=== PATIENT | male | born 1935 | race Caucasian/White ===

== ENCOUNTER 2017-04-04 05:48 | Day surgery (SDC) | payer MEDICARE, BC, OTHER ==
[~2017-04-04] VITALS: Ht 177.8 cm; Wt 83.5 kg
[~2017-04-04 05:48] MED LIST: ALEV220T26 PO; ASPI1TAB PO; ASPI325T PO; ATEN25TA PO; ATRO1OPD; BIMA01SOL OU; COMB0.2S; GABA-282 PO; GLIP10TA6 PO; GLIP5TAB8 PO; LATA5OPD; LISI10TA4 PO; METF10004 PO; PRED20TA PO; TRAV04OPD OU
[2017-04-04] MEDS ORDERED: ACETAMINOPHEN 325 MG TAB PO PRN (06:00)
[2017-04-04] MEDS ORDERED: SLF 3 ML SYR IV SCH (06:00)
[2017-04-04] MEDS ORDERED: SLF 3 ML SYR IV PRN (06:00)
[2017-04-04] MEDS ORDERED: BETAMETHASONE SOLUSPAN 6MG/ML INJ 5ML (J0702) As Ordered ONE (06:43)
[2017-04-04] MEDS ORDERED: mitoMYcin 0.2 MG/VIAL KIT FOR OPHTHALMIC USE (J7315 PER 0.2MG) As Ordered ONE (06:43)
[2017-04-04] MEDS ORDERED: TOBRADEX OPHTH OINT 3.5 GM As Ordered ONE (06:43)
[2017-04-04] MEDS ORDERED: TOBRAMYCIN INJ 80 MG/2 ML VIAL (J3260) As Ordered ONE (06:43)
[2017-04-04] MEDS ORDERED: POVIDONE-IODINE 5% OPHTH PREP SOL 30ML As Ordered ONE (06:44)
[2017-04-04] MEDS ORDERED: LIDOCAINE 2% W/EPIN INJ 20ML **PRES FREE As Ordered ONE (06:44)
[2017-04-04] MEDS ORDERED: BSS with VANC/TOB/EPI for EYE CASES IR ONE (07:00)
[2017-04-04] MEDS ORDERED: OFLOXACIN 0.3 % (OCUFLOX) OPTH SOL 5ML OD ONE (07:00)
[2017-04-04] MEDS ORDERED: LIDOCAINE 3.5 % 1ML OPHTH TOPICAL GEL OU ONE (07:00)
[2017-04-04] MEDS ORDERED: PROPARACAINE 0.5% OPHTH SOL 15ML OD PRN (07:01)
[2017-04-04] MEDS ORDERED: MIDAZOLAM INJ 2 MG/2 ML VIAL (J2250) As Ordered ONE (07:31)
[2017-04-04] MEDS ORDERED: fentaNYL 100 MCG/2 ML INJECTION (J3010) As Ordered ONE (07:31)
[2017-04-04] MEDS ORDERED: HEALON DUET (HEALON 10MG/ML 0.55ML & HEALON ENDOCOAT 30MG/ML 0.85ML) As Ordered ONE (07:59)
[2017-04-04] MEDS ORDERED: TRIMETHOBENZAMIDE 300 MG CAP PO PRN (08:30)
[2017-04-04] MEDS ORDERED: KETOROLAC 0.5% OPHTH SOLN OD ONE (08:30)
[2017-04-04 08:45] VITALS: BP 183/87
== END 2017-04-04 09:22 | disposition home or self-care (01) ==
LOC: M SDC 05:48
PROVIDERS: ATTEND Ophthalmology
DX: H40.811 Glaucoma with increased episcleral venous pressure, right eye (principal); E11.9 Type 2 diabetes mellitus without complications; Z98.61 Coronary angioplasty status; Z95.0 Presence of cardiac pacemaker; I10 Essential (primary) hypertension; N40.0 Benign prostatic hyperplasia without lower urinary tract symptoms; Z79.82 Long term (current) use of aspirin; Z79.899 Other long term (current) drug therapy
CPT/HCPCS: 66183; C1783; J2250; J3010; J7315

== ENCOUNTER → 2019-04-15 | Outpatient (REF) | payer MEDICARE, OTHER ==
[~2019-04-15] MED LIST changes: +ASPI-1 PO; -ASPI1TAB PO; -ASPI325T PO; +ASPI81TA26 PO; -GABA-282 PO; +GABA-843 PO; +LATA0.0013; -LATA5OPD
== END ==
LOC: M LAB REF 16:49
PROVIDERS: ATTEND Podiatrist Foot & Ankle Surgery
DX: L03.116 Cellulitis of left lower limb (principal)

== ENCOUNTER 2019-04-20 12:54 | Emergency (ER) | payer MEDICARE, BC, OTHER ==
[~2019-04-20] VITALS: Ht 180.3 cm; Wt 86.4 kg
[~2019-04-20 12:54] MED LIST changes: -COMB0.2S; +COMB0.2S OP
[2019-04-20 13:40] LABS: BASO % 0.2 % (0.0-1.0); EOS % 0.1 % (0.0-3.0); HEMATOCRIT 38.4 % (42.0-52.0); HEMOGLOBIN 12.3 g/dl (13.5-17.5); LYMPH # 0.9 10^3/uL (1.5-5.0); LYMPH % 4.5 % (24.0-44.0); MEAN CORPUSCULAR HEMOGLOBIN 31.4 pg (27.0-33.0); MONO # 1.4 10^3/uL (0.0-0.8); MONO % 7.4 % (0.0-5.0); NEUTROPHILS # 16.7 10^3/uL (1.5-8.5); NEUTROPHILS % 86.8 % (36.0-66.0); PLATELET COUNT, AUTOMATED 352 10^3/uL (150-450); RED BLOOD COUNT 3.92 10^6/uL (4.30-6.10); WHITE BLOOD COUNT 19.2 10^3/uL (4.0-10.0)
[2019-04-20 13:51] LABS: INR 1.39; PROTHROMBIN TIME 16.8 SECONDS (11.8-14.0)
[2019-04-20 13:52] LABS: PARTIAL THROMBOPLASTIN TIME 28.7 SECONDS (25.0-38.4)
[2019-04-20] MEDS ORDERED: XALA0.007 OP (14:04)
[2019-04-20] MEDS ORDERED: METO1TAB32 PO (14:04)
[2019-04-20] MEDS ORDERED: CEPH500C PO (14:04)
[2019-04-20] MEDS ORDERED: MUPI2OI TOP (14:04)
[2019-04-20 14:11] LABS: ALBUMIN 3.1 GM/DL (3.2-5.2); BILIRUBIN,DIRECT 0.3 MG/DL (0.0-0.2); BILIRUBIN,TOTAL 0.8 MG/DL (0.2-1.0); CALCIUM LEVEL 9.8 MG/DL (8.8-10.2); CK-MB VALUE MASS 98.1 NG/ML (<3.6); CREATININE FOR GFR 3.11 MG/DL (0.70-1.30); FREE T4 1.14 NG/DL (0.76-1.46); GLOMERULAR FILTRATION RATE 20.4 (>35); MB/CK RELATIVE INDEX 19.43 (< OR =4); POTASSIUM SERUM 5.2 MEQ/L (3.5-5.1); THYROID STIMULATING HORMONE 2.47 uIU/ML (0.358-3.740); TOTAL PROTEIN 8.1 GM/DL (6.4-8.2); TROPONIN I 31.3 NG/ML (< 0.10)
[2019-04-20] MEDS ORDERED: NITROGLYCERIN 2% OINT 1 GM *U/D* PKT TOP ONE (14:15)
[2019-04-20 14:18] VITALS: BP 132/75
--- NOTE | 2019-04-20 14:18 | REP ---
Portable chest x-ray: Single view. History: Chest pain. Comparison is made with lung field images from a CT study of the abdomen June 02, 2010 and comparison chest x-ray February 11, 2009. Findings: Monitoring electrodes are seen. There is a new diffuse moderate to severe pulmonary edema pattern. The heart is not felt to be enlarged, however. Pulmonary vasculature appears cephalized. The aorta is tortuous. No focal infiltrate is seen. Impression: Moderate to severe acute pulmonary edema pattern noted. Heart is not enlarged. Electronically Signed by Jj Richards MD 04/20/2019 02:47 P
[2019-04-20] MEDS ORDERED: ASPIRIN 81 MG CHEW TABLET PO ONE (14:45)
[2019-04-20] MEDS ORDERED: FUROSEMIDE 100 MG/10 ML VIAL (J1940) IV ONE (14:45)
[2019-04-20] MEDS ORDERED: VANCOMYCIN HCL 1,000 MG, VIAL MATE ADAPTER 1 EACH in D5W 250 ML IV ONE (14:45)
[2019-04-20] MEDS ORDERED: ONDANSETRON 4MG/2ML VIAL (J2405) IV ONE (15:15)
[2019-04-20 15:59] VITALS: BP 124/68
--- NOTE | 2019-04-21 00:52 | ECGEPIP ---
[facility] - ED Test Date: 2019-04-20 Pat Name: LUIS ENGEL Department: Room: - Gender: Male Special Service Representative: jakub : [id number] Requested By: Lou Patel Order Number: [id number] Reading MD: Yaakov Vaughan Measurements Intervals Hurt Rate: 106 P: -6 GA: 164 QRS: 8 QRSD: 157 T: 176 QT: 349 QTc: 465 Interpretive Statements SINUS TACHYCARDIA WITH FREQUENT VENTRICULAR PREMATURE COMPLEXES POSSIBLE LEFT ATRIAL ENLARGEMENT LEFT BUNDLE BRANCH BLOCK Comparison tracing not on file Electronically Signed on 04-21-2019 0:52:19 EST by Yaakov Vaughan
== END 2019-04-20 16:28 | disposition short-term general hospital (02) ==
LOC: M ED 12:54
DX: I21.4 Non-ST elevation (NSTEMI) myocardial infarction (principal); N17.9 Acute kidney failure, unspecified; I50.20 Unspecified systolic (congestive) heart failure; J81.0 Acute pulmonary edema; R00.0 Tachycardia, unspecified; I44.7 Left bundle-branch block, unspecified; E11.621 Type 2 diabetes mellitus with foot ulcer; Z95.5 Presence of coronary angioplasty implant and graft; Z85.46 Personal history of malignant neoplasm of prostate; Z79.899 Other long term (current) drug therapy
CPT/HCPCS: 36600; 71045; 80048; 80076; 82550; 82553; 82803; 83690; 83880; 84439; 84443; 84484; 85025; 85610; 85730; 87040; 87486; 87581; 87633; 87798; 93005; 93041; 94760; 96374; 96375; 99285; J1940; J2405; J3370

== ENCOUNTER → 2019-06-11 | Outpatient (CLI) | payer MEDICARE, BC, OTHER ==
[~2019-06-11] MED LIST changes: +CEPH500C PO; +METO1TAB32 PO; +MUPI2OI TOP; +XALA0.007 OP
--- NOTE | 2019-06-12 09:29 | REP ---
Bilateral lower extremity arterial Doppler ultrasound: History: Peripheral vascular disease. Status post left toe amputation 2 months ago. Diabetes. Findings: The ankle brachial indices could not be performed because of absence of flow in the distal posterior tibial and distal anterior tibial arteries. There is evidence of occlusion of the right superficial femoral artery with third reconstituted reverse flow seen in the popliteal artery. 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 Heavily calcified vessels with significant plaquing seen. Monophasic waveforms are noted in the right popliteal, tibioperoneal trunk and proximal ECA. Right lower extremity arterial Doppler velocity chart: CF A 56/92 cm/S Profunda 118 Proximal SFA 28/occluded Mid SFA occluded Distal SFA occluded Popliteal 7.8 Proximal AT A 16 Tibioperoneal trunk 20 Proximal J[employer] SOFTWARE [employer]ELOPER 4 Distal [employer] SOFTWARE DEVELOPER occluded Distal AT A occluded Left lower extremity arterial Doppler velocity chart: CF A 101 cm/S Profunda 90 Proximal SFA 68/113 Mid SFA 76 Distal SFA 87 Popliteal 89 Proximal AT A 75 Tibioperoneal trunk 74 Proximal [employer] SOFTWARE DEVELOPER 116 Distal [employer] SOFTWARE DEVELOPER occluded Distal AT A occluded Electronically Signed by Jj Richards MD 06/12/2019 09:21 A
== END ==
LOC: M RAD 12:34
PROVIDERS: ATTEND Physician Assistant
DX: I73.9 Peripheral vascular disease, unspecified (principal); Z89.422 Acquired absence of other left toe(s)

== ENCOUNTER → 2019-08-18 | Outpatient (REF) | payer MEDICARE, BC, OTHER | LOC: M LAB REF 15:59 | PROVIDERS: ATTEND Surgery | DX: E11.621 Type 2 diabetes mellitus with foot ulcer (principal) | CPT/HCPCS: 15275; 28825; 88304; 88311; Q4151 ==

== ENCOUNTER → 2022-04-03 | Outpatient (REF) | payer MEDICARE, OTHER ==
[~2022-04-03] MED LIST changes: +GABA-282 PO; -GABA-843 PO; +LISI10TA22 PO; -LISI10TA4 PO
[2022-04-03 19:22] LABS: HEMOGLOBIN A1c 6.6 % (4.0-6.0)
== END ==
LOC: M SFHCWOUN 16:30
PROVIDERS: ATTEND Surgery
DX: E11.621 Type 2 diabetes mellitus with foot ulcer (principal)

== ENCOUNTER → 2022-04-10 | Outpatient (REF) | payer MEDICARE, OTHER | LOC: M SFHCWOUN 16:31 | PROVIDERS: ATTEND Physician Assistant | DX: E11.621 Type 2 diabetes mellitus with foot ulcer (principal); L97.514 Non-pressure chronic ulcer of other part of right foot with necrosis of bone ==